=== PATIENT | female | born 1960 | race Asian ===

== ENCOUNTER 2018-05-15 19:10 | Emergency (ER) | payer SELFPAY ==
[2018-05-15 20:14] LABS: BASOPHIL % 0.8 % (0-2); PLATELET COUNT 188 x10^3mcL (130-400); RED CELL DISTRIBUTION WIDTH 11.9 % (11.5-14.5)
[2018-05-15 20:25] LABS: CARBON DIOXIDE 27.5 mmol/L (21-32); CHLORIDE SERUM 105 mmol/L (98-107); CREATININE SERUM 0.9 mg/dL (0.6-1.0); GFR1 > 60 mL/min; GLUCOSE SERUM 135 mg/dL (74-106); POTASSIUM SERUM 3.1 mmol/L (3.5-5.1); SODIUM SERUM 141 mmol/L (136-145)
[2018-05-15 20:37] LABS: ALBUMIN 3.4 g/dL (3.4-5.0); ALKALINE PHOSPHATASE 64 U/L (46-116); ALT/SGPT 21 U/L (14-59); AST/SGOT 13 U/L (15-37); CHOLESTEROL 167 mg/dL (<200); TOTAL PROTEIN, SERUM 7.1 g/dL (6.4-8.2)
[2018-05-15 22:05] VITALS: BP 104/66
== END 2018-05-15 22:05 | disposition home or self-care (01) ==
LOC: ED 19:10
PROVIDERS: Specialist
DX: E87.6 Hypokalemia (principal); I95.9 Hypotension, unspecified
CPT/HCPCS: 83880; G0480; Q0092